=== PATIENT | female | born 1990 | race Caucasian/White ===

== ENCOUNTER 2016-03-16 01:13 | Emergency (ER) | payer OTHER ==
[~2016-03-16] VITALS: Ht 170.2 cm; Wt 57.0 kg
[~2016-03-16 01:13] MED LIST: BACTRIM,SEPT1 TABLET PO; MOTRIN600 MG PO; NORCO 5/3251 TABLET PO; PROVENTIL HFA6.7 GM IH; ZITHROMAX Z-PA250 MG PO; ZOFRAN4 MG PO
[2016-03-16 03:50] LABS: INFLUENZA A VIRAL ANTIGEN NEGATIVE; INFLUENZA B VIRAL ANTIGEN NEGATIVE
[2016-03-16] MEDS ORDERED: TAMIFLU75 MG PO (05:04)
[2016-03-16] MEDS ORDERED: FIORICET 50-301 EACH PO (05:04)
[2016-03-16] MEDS ORDERED: ZOFRAN ODT4 MG PO (05:04)
[2016-03-16 05:15] VITALS: BP 105/70
== END 2016-03-16 05:21 | disposition home or self-care (01) ==
LOC: EME 01:13
PROVIDERS: Physician Assistant
DX: J11.1 Influenza due to unidentified influenza virus with other respiratory manifestations (principal); R51 Headache; F17.200 Nicotine dependence, unspecified, uncomplicated
CPT/HCPCS: 87502; 99281; 99284

== ENCOUNTER 2016-09-12 20:45 | Emergency (ER) | payer OTHER ==
[~2016-09-12] VITALS: Ht 162.6 cm; Wt 55.4 kg
[~2016-09-12 20:45] MED LIST changes: +FIORICET 50-301 EACH PO; +TAMIFLU75 MG PO; +ZOFRAN ODT4 MG PO
[2016-09-12 22:49] VITALS: BP 113/74
== END 2016-09-12 22:49 | disposition home or self-care (01) ==
LOC: EXP 20:45 → EME 20:45 → EXP 22:49
DX: S93.502A Unspecified sprain of left great toe, initial encounter (principal); X58.XXXA Exposure to other specified factors, initial encounter; Y93.89 Activity, other specified
CPT/HCPCS: 73630; 99281; 99284

== ENCOUNTER 2017-01-10 12:54 | Emergency (ER) | payer OTHER ==
[~2017-01-10] VITALS: Ht 162.6 cm; Wt 54.5 kg
[~2017-01-10 12:54] MED LIST changes: +FLEXERIL10 MG PO; +MEDROL DOSEPAK4 MG PO
[2017-01-10] MEDS ORDERED: LIDODERM 5% P1 PATCH TD (17:22)
[2017-01-10] MEDS ORDERED: NEURONTIN100 MG PO (17:22)
[2017-01-10 17:27] VITALS: BP 101/59
== END 2017-01-10 17:33 | disposition home or self-care (01) ==
LOC: EME 12:54
DX: S39.82XA Other specified injuries of lower back, initial encounter (principal); M54.16 Radiculopathy, lumbar region; W17.89XA Other fall from one level to another, initial encounter; Y93.39 Activity, other involving climbing, rappelling and jumping off; Y93.01 Activity, walking, marching and hiking; F17.200 Nicotine dependence, unspecified, uncomplicated; Z88.5 Allergy status to narcotic agent
CPT/HCPCS: 72131; 99281; 99284; J1885

== ENCOUNTER 2017-03-16 18:32 | Emergency (ER) | payer SELFPAY ==
[~2017-03-16] VITALS: Ht 162.6 cm; Wt 60.5 kg
[~2017-03-16 18:32] MED LIST changes: +LIDODERM 5% P1 PATCH TD; +NEURONTIN100 MG PO
[2017-03-16 19:32] LABS: ALBUMIN 4.1 g/dL (3.2-4.8)
[2017-03-16 19:33] LABS: APPEARANCE CLOUDY ((CLEAR)); BILIRUBIN NEGATIVE; BLOOD NEGATIVE; COLOR YELLOW ((YELLOW)); GLUCOSE (STRIP) NEGATIVE; KETONES NEGATIVE; LEUKOCYTES MODERATE; NITRITE NEGATIVE; PROTEIN (STRIP) 30; SPECIFIC GRAVITY 1.026 (1.000-1.030); UROBILINOGEN 0.2 MG/DL (0.2-1.0)
[2017-03-16 19:33] LABS: CHLORIDE 109 mEq/L (99-109); POTASSIUM 3.5 mEq/L (3.7-5.4); SODIUM 136 mEq/L (136-147)
[2017-03-16 19:35] LABS: GLUCOSE 77 mg/dL (70-99); TOTAL PROTEIN 7.6 g/dL (6.4-8.3)
[2017-03-16 19:37] LABS: HEMATOCRIT 30.9 % (36.0-46.0); HEMOGLOBIN 9.6 G/DL (11.9-15.5); MCH 21.8 PG (29.0-34.0); MCHC 31.1 G/DL (30.0-36.0); MCV 70.1 FL (83-99); PLATELET COUNT 348 K/uL (156-360); RBC DIS.WIDTH-CV 16.1 % (11.8-14.6); RBC DIS.WIDTH-SD 40.8 % (39-53); RED BLOOD COUNT 4.41 M/uL (3.80-5.20); TOTAL BILIRUBIN 0.2 mg/dL (0.0-1.0)
[2017-03-16 19:38] LABS: ALKALINE PHOSPHATASE 83 IU/L (3-129)
[2017-03-16 19:39] LABS: CREATININE 0.8 mg/dL (0.6-1.3); GFR ESTIMATE (CALCULATED) > 59 mL/min/
[2017-03-16 19:40] LABS: AST (GOT) 21 IU/L (2-34); UREA NITROGEN (BUN) 9 mg/dL (9-23)
[2017-03-16 19:42] LABS: ALT (GPT) 8 IU/L (3-49)
[2017-03-16 19:47] LABS: QUANTITATIVE HCG < 4.0 MIU/ML
[2017-03-16 20:03] LABS: AMORPHOUS URATES CRYSTALS 1+; BACTERIA 1+ /HPF; EPITHELIAL CELLS 3+ /HPF; MUCUS 2+ /LPF; UCUL ADDED? NO; WHITE BLOOD CELLS 0-5 /HPF (0-5)
[2017-03-16] MEDS ORDERED: KEFLEX500 MG PO (20:35)
[2017-03-16] MEDS ORDERED: PYRIDIUM200 MG PO (20:35)
[2017-03-16 21:05] VITALS: BP 123/83
== END 2017-03-16 20:35 | disposition home or self-care (01) ==
LOC: EME 18:32
DX: N39.0 Urinary tract infection, site not specified (principal); R31.9 Hematuria, unspecified; Z87.442 Personal history of urinary calculi; F17.200 Nicotine dependence, unspecified, uncomplicated; Z90.49 Acquired absence of other specified parts of digestive tract; Z88.5 Allergy status to narcotic agent
CPT/HCPCS: 74176; 80053; 81003; 84702; 85027; 99281; 99284

== ENCOUNTER 2017-06-16 22:41 | Emergency (ER) | payer OTHER ==
[~2017-06-16] VITALS: Ht 162.6 cm; Wt 62.1 kg
[~2017-06-16 22:41] MED LIST changes: +KEFLEX500 MG PO; +PYRIDIUM200 MG PO
[2017-06-17] MEDS ORDERED: MOTRIN600 MG PO (01:34)
[2017-06-17] MEDS ORDERED: ULTRACET1 TABLET PO (01:34)
[2017-06-17 01:50] VITALS: BP 127/79
== END 2017-06-17 01:53 | disposition home or self-care (01) ==
LOC: EME 22:41
DX: S66.319A Strain of extensor muscle, fascia and tendon of unspecified finger at wrist and hand level, initial encounter (principal); M77.9 Enthesopathy, unspecified; W18.2XXA Fall in (into) shower or empty bathtub, initial encounter; Y93.E1 Activity, personal bathing and showering; F17.200 Nicotine dependence, unspecified, uncomplicated; Z88.5 Allergy status to narcotic agent
CPT/HCPCS: 73090; 73110; 99281; 99283

== ENCOUNTER 2017-07-04 19:44 | Emergency (ER) | payer OTHER ==
[~2017-07-04] VITALS: Ht 162.6 cm; Wt 61.3 kg
[~2017-07-04 19:44] MED LIST changes: +ULTRACET1 TABLET PO
[2017-07-04 21:42] VITALS: BP 103/66
== END 2017-07-04 21:47 | disposition home or self-care (01) ==
LOC: EME 19:44
DX: S63.615A Unspecified sprain of left ring finger, initial encounter (principal); X50.1XXA Overexertion from prolonged static or awkward postures, initial encounter
CPT/HCPCS: 73140; 99281; 99284

== ENCOUNTER 2017-10-04 17:28 | Emergency (ER) | payer OTHER ==
[~2017-10-04] VITALS: Ht 162.6 cm; Wt 60.1 kg
[2017-10-04 18:18] LABS: HEMOGLOBIN 11.3 G/DL (11.9-15.5); MCH 22.9 PG (29.0-34.0); MCHC 32.3 G/DL (30.0-36.0); MCV 70.9 FL (83-99); PLATELET COUNT 411 K/uL (156-360); RBC DIS.WIDTH-CV 16.6 % (11.8-14.6); RBC DIS.WIDTH-SD 42.3 % (39-53); RED BLOOD COUNT 4.94 M/uL (3.80-5.20); WHITE BLOOD COUNT 8.3 K/uL (4.1-10.2)
[2017-10-04 18:19] LABS: ALBUMIN 4.4 g/dL (3.2-4.8)
[2017-10-04 18:20] LABS: CHLORIDE 106 mEq/L (99-109); POTASSIUM 3.7 mEq/L (3.7-5.4); SODIUM 138 mEq/L (136-147)
[2017-10-04 18:21] LABS: APPEARANCE CLEAR ((CLEAR)); BILIRUBIN NEGATIVE; BLOOD NEGATIVE; COLOR YELLOW ((YELLOW)); GLUCOSE (STRIP) NEGATIVE; KETONES NEGATIVE; LEUKOCYTES NEGATIVE; NITRITE NEGATIVE; PROTEIN (STRIP) NEGATIVE; SPECIFIC GRAVITY 1.014 (1.000-1.030); UCUL ADDED? NO; UROBILINOGEN 0.2 MG/DL (0.2-1.0)
[2017-10-04 18:22] LABS: GLUCOSE 89 mg/dL (70-99); TOTAL PROTEIN 8.1 g/dL (6.4-8.3)
[2017-10-04 18:24] LABS: TOTAL BILIRUBIN 0.4 mg/dL (0.0-1.0)
[2017-10-04 18:25] LABS: ALKALINE PHOSPHATASE 90 IU/L (3-129)
[2017-10-04 18:26] LABS: CREATININE 0.9 mg/dL (0.6-1.3); GFR ESTIMATE (CALCULATED) > 59 mL/min/
[2017-10-04 18:27] LABS: AST (GOT) 21 IU/L (2-34); UREA NITROGEN (BUN) 7 mg/dL (9-23)
[2017-10-04 18:28] LABS: ALT (GPT) 7 IU/L (3-49)
[2017-10-04 18:36] LABS: QUANTITATIVE HCG < 4.0 MIU/ML
[2017-10-04] MEDS ORDERED: DOXYCYCLINE HY100 MG PO (19:42)
[2017-10-04] MEDS ORDERED: FLAGYL500 MG PO (19:42)
[2017-10-04] MEDS ORDERED: TRAMADOL HCL50 MG PO (19:43)
[2017-10-04 19:47] LABS: SOURCE SWAB
[2017-10-04 20:45] VITALS: BP 124/86
== END 2017-10-04 20:45 | disposition home or self-care (01) ==
LOC: EME 17:28
PROVIDERS: Physician Assistant
DX: N73.0 Acute parametritis and pelvic cellulitis (principal); R19.7 Diarrhea, unspecified; Q51.2 Other doubling of uterus; F17.200 Nicotine dependence, unspecified, uncomplicated; Z90.49 Acquired absence of other specified parts of digestive tract; Z88.5 Allergy status to narcotic agent
CPT/HCPCS: 76856; 80053; 81003; 84702; 85027; 87210; 87491; 87591; 99281; 99284; J0696

== ENCOUNTER 2017-10-05 16:37 | Emergency (ER) | payer OTHER ==
[~2017-10-05] VITALS: Ht 162.6 cm; Wt 63.3 kg
[~2017-10-05 16:37] MED LIST changes: +DOXYCYCLINE HY100 MG PO; +FLAGYL500 MG PO; +TRAMADOL HCL50 MG PO
[2017-10-05 17:42] LABS: HEMOGLOBIN 9.9 G/DL (11.9-15.5); MCH 22.7 PG (29.0-34.0); MCHC 31.9 G/DL (30.0-36.0); MCV 71.1 FL (83-99); PLATELET COUNT 345 K/uL (156-360); RBC DIS.WIDTH-CV 16.5 % (11.8-14.6); RBC DIS.WIDTH-SD 42.5 % (39-53); RED BLOOD COUNT 4.36 M/uL (3.80-5.20); WHITE BLOOD COUNT 8.6 K/uL (4.1-10.2)
[2017-10-05 17:48] LABS: D-DIMER ELISA < 150.00 ng/mLDDU (<230)
[2017-10-05 17:55] LABS: CHLORIDE 104 mEq/L (99-109); POTASSIUM 3.9 mEq/L (3.7-5.4); SODIUM 136 mEq/L (136-147)
[2017-10-05 17:57] LABS: GLUCOSE 90 mg/dL (70-99)
[2017-10-05 18:00] LABS: CREATININE 0.8 mg/dL (0.6-1.3); GFR ESTIMATE (CALCULATED) > 59 mL/min/
[2017-10-05 18:01] LABS: UREA NITROGEN (BUN) 8 mg/dL (9-23)
[2017-10-05 18:14] LABS: APPEARANCE SL.HAZY ((CLEAR)); BILIRUBIN NEGATIVE; BLOOD NEGATIVE; COLOR YELLOW ((YELLOW)); GLUCOSE (STRIP) NEGATIVE; KETONES NEGATIVE; LEUKOCYTES SMALL; NITRITE NEGATIVE; PROTEIN (STRIP) 30
[2017-10-05 18:17] LABS: AMPHETAMINE NEGATIVE (500 ng/mL); BARBITURATES NEGATIVE (200 ng/mL); BENZODIAZEPINES NEGATIVE (150 ng/mL); BUPRENORPHINE NEGATIVE (10 ng/mL); COCAINE NEGATIVE (150 ng/mL); METHADONE NEGATIVE (200 ng/mL); METHAMPHETAMINE NEGATIVE (500 ng/mL); OPIATES (MORPHINE) PRESUMPTIVE POSITIVE (100 ng/mL); OXYCODONE NEGATIVE (100 ng/mL); PHENCYCLIDINE NEGATIVE (25 ng/mL); PROPOXYPHENE NEGATIVE (300 ng/mL); THC CANNABINOIDS NEGATIVE (50 ng/mL); TRICYCLIC ANTIDEPRESSANTS NEGATIVE (300 ng/mL)
[2017-10-05 18:24] LABS: BACTERIA 1+ /HPF; EPITHELIAL CELLS 2+ /HPF; MUCUS 4+ /LPF; RED BLOOD CELLS 0-5 /HPF (0-5); UCUL ADDED? NO; WHITE BLOOD CELLS 0-5 /HPF (0-5)
[2017-10-05 19:44] VITALS: BP 101/72
== END 2017-10-05 19:44 | disposition home or self-care (01) ==
LOC: EME 16:37
PROVIDERS: Emergency Medicine
DX: R55 Syncope and collapse (principal); F17.200 Nicotine dependence, unspecified, uncomplicated; Z88.5 Allergy status to narcotic agent
CPT/HCPCS: 80048; 81003; 84999; 85027; 85379; 93005; 99281; 99284; J7030